=== PATIENT | male | born 1965 | race Caucasian/White ===

== ENCOUNTER 2018-02-19 06:16 | Emergency (ER) | payer BC ==
[2018-02-19] MEDS ORDERED: HYDROMORPHONE HCL 2 MG/ML VIAL IVP ONE (06:38)
[2018-02-19 06:40] LABS: BASO % 1.1 % (0-6); EOS % 3.4 % (0-6); GRAN % 51.4 % (47-80); HEMATOCRIT 42.8 % (42.0-52.0); HEMOGLOBIN 14.6 gm/dl (14.0-18.0); LYMPH % 31.1 % (16-45); MEAN CELL VOLUME 90.3 fl (81-97); MEAN CORPUSCULAR HEMOGLOBIN 30.8 pg (27-33); MEAN CORPUSCULAR HGB CONC 34.1 g/dl (32-36); MEAN PLATELET VOLUME 10.7 fl (7.4-10.4); PLATELET COUNT 242 K/uL (130-400); RED BLOOD COUNT 4.74 M/uL (4.40-5.70); RED CELL DISTRIBUTION WIDTH 13.4 % (11.5-14.5); WHITE BLOOD COUNT W/O DIFF 7.5 K/uL (4.2-12.2)
[2018-02-19 06:44] LABS: URINE APPEARANCE CLEAR; URINE BILIRUBIN NEGATIVE (NEGATIVE); URINE BLOOD MODERATE (NEGATIVE); URINE COLOR YELLOW; URINE GLUCOSE (UA) NEGATIVE (NEGATIVE); URINE KETONE NEGATIVE (NEGATIVE); URINE LEUKOCYTE ESTERASE NEGATIVE (NEGATIVE); URINE NITRITE NEGATIVE (NEGATIVE); URINE PROTEIN NEGATIVE (NEGATIVE); URINE UROBILINOGEN 0.2 E.U./dL (0.20 - 1.00)
[2018-02-19 06:52] LABS: BLOOD UREA NITROGEN 25 mg/dL (6-20); CREATININE 0.9 mg/dL (0.7-1.2); EST GLOMERULAR FILTRATION RATE > 60 mL/min
[2018-02-19 06:53] LABS: TOTAL PROTEIN 7.2 g/dL (6.6-8.7)
[2018-02-19 06:55] LABS: GLUCOSE,RANDOM 155 mg/dL (74-109)
[2018-02-19 06:56] LABS: URINE BACTERIA NONE SEEN; URINE RBC 36 - 50 (NONE SEEN); URINE WBC 0 - 2 (0-2/hpf)
[2018-02-19 06:58] LABS: ALB/GLOB RATIO 1.4 (1.1-1.8); ALBUMIN 4.2 g/dL (4.0-5.0); ALKALINE PHOSPHATASE 74 U/L (40-129); ALT/SGPT 19 U/L (<41); AST/SGOT 16 U/L (10.0-50.0)
--- NOTE | 2018-02-19 07:06 | Emergency Department Record ---
History of Present Illness - General Chief complaint: Flank Pain Stated complaint: R ABD PAIN Time Seen by Provider: 02/19/18 06:36 Source: Patient Mode of Arrival: Ambulatory Limitations: No limitations - History of Present Illness Initial comments: 52 yo male presents with right flank pain. He reports mild pain that was intermittent yesterday. His pain returned during the night and has been constant. No fever. No blod in the stools. No diarrhea. No rash. No history of renal stones. No other cough, headaches, chest pain, changes in bowel or bladder function. PCP is Dr Haq. Complaint: Other (Right flank pain) -: Days(s) (1) Location: Right flank Radiation: RLQ Severity: Moderate Severity scale (1-10): 7 Quality: Sharp Consistency: Constant Improves with: None Worsens with: None Other Reports: Other - Related Data Home Medications Medication Instructions Recorded Confirmed Last Taken Cholecalciferol (Vitamin D3) 50,000 unit PO WEEKLY 02/19/18 02/19/18 Unknown [Vitamin D] Dicyclomine HCl 20 mg PO ASDIR 02/19/18 02/19/18 Unknown Phentermine HCl 37.5 mg PO DAILY 02/19/18 02/19/18 Unknown Pioglitazone HCl 30 mg PO DAILY 02/19/18 02/19/18 Unknown Topiramate 100Mg Tablet 100 mg PO DAILY 02/19/18 02/19/18 Unknown [Topiramate] Venlafaxine HCl [Venlafaxine HCl 75 mg PO DAILY 02/19/18 02/19/18 Unknown ER] Previous Rx's Medication Instructions Recorded Hydrocodone/APAP 5/325Mg [[place] 1 each PO Q6H #12 tab 02/19/18 5Mg/325Mg] Ondansetron [Zofran Odt] 4 mg PO Q8H #15 tab.rapdis 02/19/18 Tamsulosin HCl [Flomax] 0.4 mg PO DAILY #14 cap.er.24h 02/19/18 Allergies Allergy/AdvReac Type Severity Reaction Status Date / Time No Known Drug Allergies Allergy Verified 02/19/18 06:21 Travel Screening - Travel/Exposure Within Last 30 Days Have you traveled within the last 30 days?: No Review of Systems Constitutional: Denies: Chills, Fever, Weakness Eyes: Denies: Eye discharge ENT: Denies: Congestion, Epistaxis, Hearing loss Respiratory: Denies: Cough Cardiovascular: Denies: Chest pain, Syncope Endocrine: Denies: Fatigue Gastrointestinal: Denies: Abdominal pain, Diarrhea, Nausea, Vomiting Genitourinary: Denies: Dysuria, Frequency, Hematuria, Urgency Musculoskeletal: Reports: Back pain. Denies: Arthralgia, Joint swelling, Myalgia Skin: Denies: Bruising, Change in color, Rash Neurological: Denies: Headache, Numbness, Weakness Psychiatric: Denies: Anxiety Hematological/Lymphatic: Denies: Anemia, Easy bleeding, Easy bruising, Swollen glands Past Medical History - SOCIAL HISTORY Smoking Status: Never smoker Alcohol Use: None Drug Use: None - RESPIRATORY Hx Respiratory Disorders: No - CARDIOVASCULAR Hx Cardio Disorders: No - NEURO Hx Neuro Disorders: No - GI Hx GI Disorders: Yes Hx Crohn's Disease: Yes - Hx Genitourinary Disorders: No - ENDOCRINE Hx Endocrine Disorders: Yes Hx Diabetes: Yes (DM2) - MUSCULOSKELETAL Hx Musculoskeletal Disorders: No - PSYCH Hx Psych Problems: No - HEMATOLOGY/ONCOLOGY Hx Hematology/Oncology Disorders: No Family Medical History Any Significant Family History?: No Physical Exam - General General Appearance: Alert, Oriented x3, Cooperative, No acute distress - Head Head exam: Normal inspection - Eye Eye exam: Normal appearance, PERRL - ENT ENT exam: Normal exam, Mucous membranes moist Ear exam: Normal external inspection Nasal Exam: Normal inspection Mouth exam: Normal external inspection - Neck Neck exam: Normal inspection, Full ROM. negative: Tenderness - Respiratory Respiratory exam: Normal lung sounds bilaterally. negative: Respiratory distress - Cardiovascular Cardiovascular Exam: Regular rate, Normal rhythm, Normal heart sounds - GI/Abdominal GI/Abdominal exam: Soft. negative: Guarding, Hernia, Pulsatile mass - Rectal Rectal exam: Deferred - exam: Deferred - Extremities Extremities exam: Normal inspection, Full ROM, Normal capillary refill. negative: Tenderness - Back Back exam: Reports: CVA tenderness (R). Denies: CVA tenderness (L), Paraspinal tenderness, Rash noted, Vertebral tenderness - Neurological Neurological exam: Alert, Oriented X3 - Psychiatric Psychiatric exam: Normal affect, Normal mood - Skin Skin exam: Dry, Intact, Normal color, Warm Course Vital Signs 02/19/18 02/19/18 06:19 06:59 Temperature 98.5 F Pulse Rate 54 L Respiratory 20 Rate Blood Pressure 156/89 Pulse Ox 97 - Reevaluation(s) Reevaluation #1: 02/19/18 07:08 The labs were reviewed No acute changes on the CBC The GFR is normal CT ordered prior to my arrival 02/19/18 08:[address] scan demonstrates a 5mm x1.5mm mid right ureteral stone The patient reports his pain is well controlled at this time. 02/19/18 08:[address] Chopra on his pager. Consult placed for follow up. 02/19/18 09:30 The patient remains pain free. He was discharged home with referral made to urology. Medical Decision Making - Lab Data Result diagrams: 02/19/18 06:20 02/19/18 06:20 Lab Results 02/19/18 02/19/18 02/19/18 Range/Units 06:20 06:20 06:20 WBC 7.5 (4.2-12.2) K/uL RBC 4.74 (4.40-5.70) M/uL Hgb 14.6 (14.0-18.0) gm/dl Hct 42.8 (42.0-52.0) % MCV 90.3 (81-97) fl MCH 30.8 (27-33) pg MCHC 34.1 (32-36) g/dl RDW 13.4 (11.5-14.5) % Plt Count 242 (130-400) K/uL MPV 10.7 H (7.4-10.4) fl Gran % 51.4 (47-80) % Lymphocytes % 31.1 (16-45) % Monocytes % 13.0 H (0-9) % Eosinophils % 3.4 (0-6) % Basophils % 1.1 (0-6) % Sodium 144 (136-145) mmol/L Potassium 3.9 (3.4-4.5) mmol/L Chloride 102 (98-107) mmol/L Carbon Dioxide 25.0 (22-29) mmol/L Anion Gap 17.0 H (7-16) BUN 25 H (6-20) mg/dL Creatinine 0.9 (0.7-1.2) mg/dL Estimated GFR > 60 mL/min Random Glucose 155 H (74-109) mg/dL Calcium 8.9 (8.6-10.0) mg/dL Total Bilirubin 0.20 (0.2-1.0) mg/dL AST 16 (10.0-50.0) U/L ALT 19 (<41) U/L Alkaline Phosphatase 74 (40-129) U/L Total Protein 7.2 (6.6-8.7) g/dL Albumin 4.2 (4.0-5.0) g/dL Globulin 3.0 (1.4-4.8) gm/dL Albumin/Globulin Ratio 1.4 (1.1-1.8) Urine Color Yellow Urine Appearance Clear Urine pH 6.0 (5.0-8.0) Ur Specific [place] >= 1.030 (1.002-1.030) Urine Protein Negative (NEGATIVE) Urine Glucose (UA) Negative (NEGATIVE) Urine Ketones Negative (NEGATIVE) Urine Blood Moderate (NEGATIVE) Urine Nitrite Negative (NEGATIVE) Urine Bilirubin Negative (NEGATIVE) Urine Urobilinogen 0.2 (0.20 - 1.00) E.U./dL Ur Leukocyte Esterase Negative (NEGATIVE) Urine RBC 36 - 50 (NONE SEEN) Urine WBC 0 - 2 (0-2/hpf) Ur Epithelial Cells 3 - 6 (FEW) Urine Bacteria None seen Disposition Disposition: Discharge Clinical Impression: Renal stone Disposition: Home, Self-Care Condition: (1) Good Instructions: Kidney Stones (ED), Renal Colic (ED) Additional Instructions: Return or be seen right away if you have fever, uncontrolled pain or any other concerns You have been referred to urology for follow up of the kidney stone Prescriptions: Hydrocodone/APAP 5/325Mg [[place] 5Mg/325Mg] 1 each PO Q6H #12 tab Ondansetron [Zofran Odt] 4 mg PO Q8H #15 tab.rapdis Tamsulosin HCl [Flomax] 0.4 mg PO DAILY #14 cap.er.24h Referrals: MILY CHOPRA M.D. [MEDICAL DOCTOR] - [facility] [Provider Group] Forms: Patient Portal Access Time of Disposition: 08:51 Quality - Quality Measures Quality Measures: N/A - Blood Pressure Screening Does Patient Have Any of the Following: No Blood Pressure Classification: Normal BP Reading Systolic Measurement: 116 Diastolic Measurement: 71 Screening for High Blood Pressure: < Normal BP, F/U Not Required > [G8783] Pre-Hypertensive Follow-up Interventions: Referral to alternative/primary care provider.
[2018-02-19] MEDS ORDERED: KETOROLAC 30 MG/ML VIAL IVP ONE (07:13)
[2018-02-19] MEDS ORDERED: 0.9 % SODIUM CHLORIDE 1,000 ML BAG IV STA (07:14)
[2018-02-19] MEDS ORDERED: TAMSULOSIN HCL 0.4 MG CAP.ER.24H PO ONE (08:07)
--- NOTE | 2018-02-20 13:54 | CT SCAN REPORT ---
DATE: 02/19/2018. EXAM: CT OF THE ABDOMEN AND PELVIS. HISTORY: Right flank pain. TECHNIQUE: CT of the abdomen and pelvis was performed without oral or intravenous contrast. This limits evaluation of bowel and solid visceral organs. COMPARISON: None. FINDINGS: Limited evaluation of the lung bases shows several nonspecific, nonenlarged paracardial lymph nodes. Osseous structures are grossly intact. Limited evaluation of the liver, spleen, adrenal glands, and pancreas is unremarkable. There are punctate, nonobstructing renal calculi bilaterally. In addition, there is moderate right-sided hydronephrosis and hydroureter with minor surrounding inflammatory change secondary to an approximately 4.9 mm mid right ureteral calculus. The gallbladder is present. Abundant stool in the colon. There are several nonspecific, mildly enlarged lymph nodes in the upper abdomen and gastrohepatic ligament. The largest node measures 2.7 x 1.9 cm. Several nonspecific, nonenlarged to borderline enlarged retroperitoneal nodes and central mesenteric nodes are also present. Normal appendix. Urinary bladder not distended limiting its evaluation. No free air or free fluid. IMPRESSION: 1. MODERATE RIGHT-SIDED HYDRONEPHROSIS AND HYDROURETER SECONDARY TO A 4.9 MM MID RIGHT URETERAL CALCULUS. OTHER PUNCTATE, NONOBSTRUCTING RENAL CALCULI ARE PRESENT BILATERALLY. 2. MULTIPLE NONENLARGED AND ENLARGED LYMPH NODES THROUGHOUT THE ABDOMEN AND PELVIS OF INDETERMINATE ETIOLOGY. CLINICAL FOLLOWUP RECOMMENDED. 3. ABUNDANT STOOL IN THE COLON. JOB NUMBER: [id number] MTDD
== END 2018-02-19 09:56 | disposition home or self-care (01) ==
LOC: ER 06:16
DX: N20.0 Calculus of kidney (principal)
CPT/HCPCS: 74176; 80053; 81001; 85025; 96372; 96374; 96376; 99284; J1885

== ENCOUNTER 2019-06-23 19:58 | Emergency (ER) | payer BC ==
[2019-06-23 20:13] LABS: URINE APPEARANCE CLEAR; URINE BILIRUBIN NEGATIVE (NEGATIVE); URINE BLOOD LARGE (NEGATIVE); URINE COLOR YELLOW; URINE KETONE NEGATIVE (NEGATIVE); URINE LEUKOCYTE ESTERASE NEGATIVE (NEGATIVE); URINE NITRITE NEGATIVE (NEGATIVE); URINE PROTEIN NEGATIVE (NEGATIVE)
[2019-06-23 20:14] LABS: URINE GLUCOSE (UA) >=1000 mg/dL (NEGATIVE)
[2019-06-23 20:20] LABS: URINE EPITHELIAL CELLS 0 - 2 (FEW); URINE RBC 16 - 25 (NONE SEEN); URINE WBC 0 - 2 (0-2/hpf)
[2019-06-23] MEDS ORDERED: 0.9 % SODIUM CHLORIDE 1,000 ML BAG IV ONE (21:04)
[2019-06-23] MEDS ORDERED: KETOROLAC 30 MG/ML VIAL IVP ONE (21:04)
[2019-06-23 21:21] LABS: ABSOLUTE NEUTROPHIL COUNT 6.35; BASO % 0.5 % (0-6); EOS % 2.2 % (0-6); HEMATOCRIT 46.7 % (42.0-52.0); HEMOGLOBIN 15.3 gm/dl (14.0-18.0); LYMPH % 17.8 % (16-45); MEAN CELL VOLUME 93.4 fl (81-97); MEAN CORPUSCULAR HEMOGLOBIN 30.6 pg (27-33); MEAN CORPUSCULAR HGB CONC 32.8 g/dl (32-36); MEAN PLATELET VOLUME 10.4 fl (7.4-10.4); MONO % 11.5 % (0-9); PLATELET COUNT 278 K/uL (130-400); RED CELL DISTRIBUTION WIDTH 14.2 % (11.5-14.5); WHITE BLOOD COUNT W/O DIFF 9.4 K/uL (4.2-12.2)
[2019-06-23 21:33] LABS: BLOOD UREA NITROGEN 26 mg/dL (6-20); EST GLOMERULAR FILTRATION RATE > 60 mL/min
[2019-06-23 21:36] LABS: GLUCOSE,RANDOM 135 mg/dL (74-109)
--- NOTE | 2019-06-23 21:44 | CT SCAN REPORT ---
EXAMINATION: CT Abdomen and Pelvis without IV Contrast EXAM DATE: 06/23/2019 9:32 PM TECHNIQUE: Standard protocol CT imaging of the abdomen and pelvis was performed without intravenous c ontrast. INDICATION: l flank pain COMPARISON: 09/21/2017 ENCOUNTER: Not applicable CT ABDOMEN AND PELVIS FINDINGS: Lung Bases: Included extent of the lung bases are clear. Hepatobiliary: The liver has a normal size with a smooth surface. Mild hypoattenuation consistent wi th fatty liver infiltration. Pancreas: The pancreas is normal. Spleen: The spleen is not enlarged. Adrenals: The adrenal glands are normal. Gastrointestinal: The stomach and small bowel are normal with no obstruction or inflammation. The lar ge bowel is within normal limits. Normal appendix. Reproductive Organs: Unremarkable Lymphatic System: There is no adenopathy within the abdomen or pelvis. Vasculature: Normal caliber abdominal aorta Peritoneum: No free fluid, free air, or inflammation Small bilateral inguinal hernias contain fat and vessels only. Assessment of the solid organs, soft tissues, and vascular structures is overall limited on noncontra st imaging, IMPRESSION: 1. Punctate 3 mm calcification at the left ureterovesicular junction. Mild hydroureter and hydronephr osis. -Nonobstructive left nephrolithiasis. 2. A large disc protrusion at the L4-5 level results in moderate to severe central canal stenosis. -Dedicated MR imaging of the lumbar spine is advised, although the urgency of this exam should be det ermined clinically. 3. Mild fatty liver infiltration Dictated by: RODRIGO THOMPSON MD on 06/23/2019 9:37 PM. .
--- NOTE | 2019-06-23 22:17 | Emergency Department Record ---
History of Present Illness - General Chief complaint: Flank Pain Stated complaint: FEELS LIKE I HAVE A KIDNEY STONE Time Seen by Provider: 06/23/19 20:59 Source: Patient Mode of Arrival: Ambulatory Limitations: No limitations - History of Present Illness Initial comments: pt has been having pain in his l flank that radiates to his l testicle. it feels like his previous kidney stones. Complaint: Testicle pain Onset/Timin -: Hour(s) Location: Left flank, Left inguinal region, Left testicle Radiation: None Severity: Moderate Severity scale (1-10): 8 Quality: Sharp Consistency: Constant, Getting worse Improves with: None Worsens with: None Other Reports: Denies other symptoms - Related Data Home Medications Medication Instructions Recorded Confirmed Last Taken Dicyclomine HCl 20 mg PO DAILY 06/23/19 06/23/19 06/23/19 Empagliflozin [Jardiance] 10 mg PO DAILY 06/23/19 06/23/19 06/23/19 Folic Acid 1 mg PO DAILY 06/23/19 06/23/19 06/23/19 Infliximab [Remicade] 800 mg IV ASDIR 06/23/19 06/23/19 Unknown Liraglutide [Victoza 3-Galdino] 1.8 unit SQ DAILY 06/23/19 06/23/19 06/23/19 Mesalamine [Pentasa] 250 mg PO DAILY 06/23/19 06/23/19 06/23/19 Methotrexate Sodium [Trexall] 5 mg PO DAILY 06/23/19 06/23/19 06/23/19 Rabeprazole Sodium [Aciphex 5 mg PO DAILY 06/23/19 06/23/19 06/23/19 Sprinkle] Previous Rx's Medication Instructions Recorded Hydrocodone/Acetaminophen [[place] 1 each PO Q6HR #10 tablet 06/23/19 5-325 Tablet] Allergies Allergy/AdvReac Type Severity Reaction Status Date / Time No Known Drug Allergies Allergy Verified 02/19/18 06:21 Travel Screening - Travel/Exposure Within Last 30 Days Have you traveled within the last 30 days?: No - Travel Symptoms Symptom Screening: None Review of Systems Reviewed: No additional complaints except as noted below Constitutional: Reports: As per HPI. Denies: Chills, Fever, Malaise, Night sweats, Weakness, Weight change Eyes: Reports: As per HPI. Denies: Eye discharge, Eye pain, Photophobia, Vision change ENT: Reports: As per HPI. Denies: Congestion, Dental pain, Ear pain, Epistaxis, Hearing loss, Throat pain Respiratory: Reports: As per HPI. Denies: Cough, Dyspnea, Hemoptysis, Stridor, Wheezes Cardiovascular: Reports: As per HPI. Denies: Arrhythmia, Chest pain, Dyspnea on exertion, Edema, Murmurs, Orthopnea, Palpitations, Paroxysmal nocturnal dyspnea, Rheumatic Fever, Syncope Endocrine: Reports: As per HPI. Denies: Fatigue, Heat or cold intolerance, Polydipsia, Polyuria Gastrointestinal: Reports: As per HPI. Denies: Abdominal pain, Constipation, Diarrhea, Hematemesis, Hematochezia, Melena, Nausea, Vomiting Genitourinary: Reports: As per HPI. Denies: Dysuria, Frequency, Hematuria, Incontinence, Retention, Testicular pain, Testicular mass, Urgency Musculoskeletal: Reports: As per HPI. Denies: Arthralgia, Back pain, Gout, Joint swelling, Myalgia, Neck pain Skin: Reports: As per HPI. Denies: Bruising, Change in color, Change in hair/nails, Lesions, Pruritus, Rash Neurological: Reports: As per HPI. Denies: Abnormal gait, Confusion, Headache, Numbness, Paresthesias, Seizure, Tingling, Tremors, Vertigo, Weakness Psychiatric: Reports: As per HPI. Denies: Anxiety, Auditory hallucinations, Depression, Homicidal thoughts, Suicidal thoughts, Visual hallucinations Hematological/Lymphatic: Reports: As per HPI. Denies: Anemia, Blood Clots, Easy bleeding, Easy bruising, Swollen glands Past Medical History - SOCIAL HISTORY Smoking Status: Never smoker Alcohol Use: None Drug Use: None - RESPIRATORY Hx Respiratory Disorders: No - CARDIOVASCULAR Hx Cardio Disorders: No - NEURO Hx Neuro Disorders: No - GI Hx GI Disorders: Yes Hx Crohn's Disease: Yes - Hx Genitourinary Disorders: Yes Hx Kidney Stones: Yes - ENDOCRINE Hx Endocrine Disorders: Yes Hx Diabetes: Yes (DM2) Comment:: psoriasis - MUSCULOSKELETAL Hx Musculoskeletal Disorders: Yes Hx Arthritis: (psoriatic) - PSYCH Hx Psych Problems: No - HEMATOLOGY/ONCOLOGY Hx Hematology/Oncology Disorders: No Family Medical History Any Significant Family History?: No Family Hx Comment (NOT TO BE USED IN PLACE OF ITEMS BELOW): denies Physical Exam - General General Appearance: Alert, Oriented x3, Cooperative, Mild distress - Head Head exam: Normal inspection - Eye Eye exam: Normal appearance, PERRL, EOMI Pupils: Normal accommodation - ENT ENT exam: Normal exam, Mucous membranes moist, Normal external ear exam, Normal orophraynx Ear exam: Normal external inspection. negative: External canal tenderness Nasal Exam: Normal inspection. negative: Discharge, Sinus tenderness Mouth exam: Normal external inspection, Tongue normal Teeth exam: Normal inspection. negative: Dental caries Throat exam: Normal inspection. negative: Tonsillar erythema, Tonsillar exudate - Neck Neck exam: Normal inspection, Full ROM. negative: Tenderness - Respiratory Respiratory exam: Normal lung sounds bilaterally. negative: Respiratory distress - Cardiovascular Cardiovascular Exam: Regular rate, Normal rhythm, Normal heart sounds - GI/Abdominal GI/Abdominal exam: Soft, Normal bowel sounds. negative: Tenderness - Rectal Rectal exam: Deferred - exam: Deferred - Extremities Extremities exam: Normal inspection, Full ROM, Normal capillary refill. negative: Tenderness - Back Back exam: Reports: Normal inspection, Full ROM. Denies: Muscle spasm, Rash noted, Tenderness - Neurological Neurological exam: Alert, CN II-XII intact, Normal gait, Oriented X3 - Psychiatric Psychiatric exam: Normal affect, Normal mood - Skin Skin exam: Dry, Intact, Normal color, Warm Course Vital Signs 06/23/19 06/23/19 20:04 22:06 Temperature 97.6 F Pulse Rate [ 65 72 Left] Respiratory 16 18 Rate Blood Pressure 163/97 135/76 [Left Arm] Pulse Ox 97 98 - Reevaluation(s) Reevaluation #1: 06/23/19 22:46 pt feels much better Reevaluation #2: 06/23/19 22:46 ct results were d/w pt. he has 3mm stone at uvj. he also hasa large disc protrusion causing severe central canal stenosi. rad is recommending a dedicated mri. pt states he has been being w/u for possible avascular necrosis. he states he has alot of back pain and hip pain Medical Decision Making - Lab Data Result diagrams: 06/23/19 20:15 06/23/19 20:15 Lab Results 06/23/19 06/23/19 06/23/19 Range/Units 20:05 20:15 20:15 WBC 9.4 (4.2-12.2) K/uL RBC 5.00 (4.40-5.70) M/uL Hgb 15.3 (14.0-18.0) gm/dl Hct 46.7 (42.0-52.0) % MCV 93.4 (81-97) fl MCH 30.6 (27-33) pg MCHC 32.8 (32-36) g/dl RDW 14.2 (11.5-14.5) % Plt Count 278 (130-400) K/uL MPV 10.4 (7.4-10.4) fl Gran % 68.0 (47-80) % Lymphocytes % 17.8 (16-45) % Monocytes % 11.5 H (0-9) % Eosinophils % 2.2 (0-6) % Basophils % 0.5 (0-6) % Absolute Neutrophils 6.35 Sodium 138 (136-145) mmol/L Potassium 3.7 (3.4-4.5) mmol/L Chloride 103 (98-107) mmol/L Carbon Dioxide 23.0 (22-29) mmol/L Anion Gap 12.0 (7-16) BUN 26 H (6-20) mg/dL Creatinine 1.0 (0.7-1.2) mg/dL Estimated GFR > 60 mL/min Random Glucose 135 H (74-109) mg/dL Calcium 9.4 (8.6-10.0) mg/dL Urine Color Yellow Urine Appearance Clear Urine pH 6.5 (5.0-8.0) Ur Specific [place] 1.020 (1.002-1.030) Urine Protein Negative (NEGATIVE) Urine Glucose (UA) >=1000 mg/dl H (NEGATIVE) Urine Ketones Negative (NEGATIVE) Urine Blood Large H (NEGATIVE) Urine Nitrite Negative (NEGATIVE) Urine Bilirubin Negative (NEGATIVE) Urine Urobilinogen 1.0 (0.20 - 1.00) E.U./dL Ur Leukocyte Esterase Negative (NEGATIVE) Urine RBC 16 - 25 (NONE SEEN) Urine WBC 0 - 2 (0-2/hpf) Ur Epithelial Cells 0 - 2 (FEW) Urine HCG, Qual 06/23/19 Range/Units 21:04 WBC (4.2-12.2) K/uL RBC (4.40-5.70) M/uL Hgb (14.0-18.0) gm/dl Hct (42.0-52.0) % MCV (81-97) fl MCH (27-33) pg MCHC (32-36) g/dl RDW (11.5-14.5) % Plt Count (130-400) K/uL MPV (7.4-10.4) fl Gran % (47-80) % Lymphocytes % (16-45) % Monocytes % (0-9) % Eosinophils % (0-6) % Basophils % (0-6) % Absolute Neutrophils Sodium (136-145) mmol/L Potassium (3.4-4.5) mmol/L Chloride (98-107) mmol/L Carbon Dioxide (22-29) mmol/L Anion Gap (7-16) BUN (6-20) mg/dL Creatinine (0.7-1.2) mg/dL Estimated GFR mL/min Random Glucose (74-109) mg/dL Calcium (8.6-10.0) mg/dL Urine Color Urine Appearance Urine pH (5.0-8.0) Ur Specific [place] (1.002-1.030) Urine Protein (NEGATIVE) Urine Glucose (UA) (NEGATIVE) Urine Ketones (NEGATIVE) Urine Blood (NEGATIVE) Urine Nitrite (NEGATIVE) Urine Bilirubin (NEGATIVE) Urine Urobilinogen (0.20 - 1.00) E.U./dL Ur Leukocyte Esterase (NEGATIVE) Urine RBC (NONE SEEN) Urine WBC (0-2/hpf) Ur Epithelial Cells (FEW) Urine HCG, Qual Cancelled Disposition Disposition: Discharge Clinical Impression: Hydronephrosis concurrent with and due to calculi of kidney and ureter, Lumbar radiculopathy, Central stenosis of spinal canal Disposition: Home, Self-Care Condition: (1) Good Instructions: Kidney Stones (ED), How to Strain Your Urine (ED), Lumbar Radiculopathy (ED), Lumbar Spinal Stenosis (ED) Additional Instructions: follow up with urologist ant neurosurgeon. return sooner if worse. have MRI of back without fail. push fluids. Prescriptions: Hydrocodone/Acetaminophen [[place] 5-325 Tablet] 1 each PO Q6HR #10 tablet Referrals: Cory Cash M.D. [MEDICAL DOCTOR] - RUSLAN ROBLEDO M.D. [MEDICAL DOCTOR] - Forms: Patient Portal Access Quality - Quality Measures Quality Measures: N/A - Blood Pressure Screening Does Patient Have Any of the Following: No Blood Pressure Classification: Pre-Hypertensive BP Reading Systolic Measurement: 135 Diastolic Measurement: 76 Screening for High Blood Pressure: < Pre-Hypertensive BP, F/U Documented > [G8950] Pre-Hypertensive Follow-up Interventions: Follow-up with rescreen every year.
[2019-06-23] MEDS ORDERED: HYDROCODONE/APAP 5/325MG TABLET PO ONE (22:58)
== END 2019-06-23 23:06 | disposition home or self-care (01) ==
LOC: ER 19:58
DX: N13.2 Hydronephrosis with renal and ureteral calculous obstruction (principal); M54.16 Radiculopathy, lumbar region; M48.01 Spinal stenosis, occipito-atlanto-axial region; Z87.442 Personal history of urinary calculi
CPT/HCPCS: 99284 ×2; 96374; 85025; 80048; 81001; 74176; J1885; J7030